=== PATIENT | male | born 1955 | race Caucasian/White ===

== ENCOUNTER 2016-12-30 18:58 | Emergency (ER) | payer OTHER ==
[~2016-12-30] VITALS: Ht 170.2 cm; Wt 79.3 kg
[~2016-12-30 18:58] MED LIST: ALPR0.25 PO; CEPH500 PO; CIPR250T2 PO; DOCU1CAP39 PO; ENOX40P SQ; LORTA10 PO; METHO500 PO; POLY119S PO; [UNRECOGNIZED DRUG - CODE] TOP
[2016-12-30 19:03] VITALS: BP 161/104; PULSE 94; RESP 18; TEMP 98.5; O2SAT 95
[2016-12-30] MEDS ORDERED: CYCL1TAB29 PO (19:37)
[2016-12-30] MEDS ORDERED: IBUP-232 PO (19:37)
--- NOTE | 2016-12-30 19:37 | PD ---
HPI Chief Complaint: Musculoskeletal Complaint Time Seen by Provider: 19:28 Travel History International Travel<30 days: No Contact w/Intl Traveler<30days: No Traveled to known affect area: No History of Present Illness HPI Patient is a 61-year-old male comes in complaining of left-sided neck pain. He says he was removing cabinets yesterday when he felt the pain in his neck. He denies any direct trauma. He denies hitting his head or falling. He says that he tried taking a Lortab without much relief. Pain is worse when he moves his head or his left arm. He denies any numbness or tingling to his hands. PFSH Past Medical History Arthritis: No Asthma: No Autoimmune Disease: No Heart Rhythm Problems: No Cancer: No Cardiovascular Problems: No High Cholesterol: No Chemotherapy: No Chest Pain: No Congestive Heart Failure: No COPD: No Cerebrovascular Accident: No Diabetes: No Diminished Hearing: No Endocrine: No Genitourinary: No Immune Disorder: No Kidney Stones: No Musculoskeletal: Yes (in hip halo and hard cast right lower leg) Neurologic: No Psychiatric: No Reproductive: No Respiratory: No Migraines: No Radiation Therapy: No Renal Failure: No Sickle Cell Disease: No Sleep Apnea: No Thyroid Disease: No Tetanus Vaccination: < 5 Years Influenza Vaccination: No Past Surgical History Abdominal Surgery: Yes (spleenectomy) AICD: No Arteriovenous Shunt: No Cardiac Surgery: No Ear Surgery: No Endocrine Surgery: No Eye Surgery: No Genitourinary Surgery: No Gynecologic Surgery: No Insulin Pump: No Joint Replacement: No Oral Surgery: No Pacemaker: No Thoracic Surgery: No Other Surgery: Yes (BILAT PELVIS , BACK ) Social History Alcohol Use: Yes (DAILY) Tobacco Use: No Substance Use: No Allergies-Medications (Allergen,Severity, Reaction): Coded Allergies: No Known Allergies (Verified , 10/14/13) Reported Meds & Prescriptions Reported Meds & Active Scripts Active Review of Systems General / Constitutional: No: Fever, Chills HENT: Positive: Neck Pain, No: Headaches Cardiovascular: No: Chest Pain or Discomfort Respiratory: No: Shortness of Breath Musculoskeletal: Positive: Pain Skin: No Rash, No Change in Pigmentation Neurologic: No: Weakness, Dizziness, Paresthesia Physical Exam Narrative GENERAL: Awake and alert, in no acute distress. SKIN: Focused skin assessment warm/dry. HEAD: Atraumatic. Normocephalic. EYES: Pupils equal and round. No scleral icterus. Extraocular movements intact. ENT: Mucous membranes pink and moist. NECK: Trachea midline. No JVD. No cervical spine tenderness. Tender to palpation of left trapezius muscle. CARDIOVASCULAR: Regular rate and rhythm. No murmur appreciated. RESPIRATORY: No accessory muscle use. Clear to auscultation. Breath sounds equal bilaterally. MUSCULOSKELETAL: No obvious deformities. No clubbing. No cyanosis. No edema. Full range of motion of the left shoulder. NEUROLOGICAL: Awake and alert. No obvious cranial nerve deficits. Motor grossly within normal limits. Normal speech. Data Data Last Documented VS Vital Signs Date Time Temp Pulse Resp B/P Pulse Ox O2 Delivery O2 Flow Rate FiO2 12/30/16 19:03 98.5 94 18 161/104 95 Orders Cyclobenzaprine (Flexeril) (12/30/16 19:45) Ketorolac Inj (Toradol Inj) (12/30/16 19:45) MDM Medical Decision Making Medical Screen Exam Complete: Yes Emergency Medical Condition: Yes Differential Diagnosis Muscle strain versus shoulder sprain versus neck sprain Narrative Course Patient is a 61-year-old male comes in complaining of back pain. Exam shows tenderness to the left trapezius muscle. Patient given Toradol and Flexeril. Will be discharged with ibuprofen and a prescription for Flexeril. Advised to stretch and use heat and ice. Advised follow-up with his doctor. Advised return to the ED as needed for any worsening symptoms. Diagnosis Primary Impression: Neck strain Qualified Code: S16.1XXA - Neck strain, initial encounter Patient Instructions: Cervical Strain (ED), General Instructions Additional Instructions: Take Ibuprofen and Flexeril for pain. Apply heat and ice, alternating, to the affected area. Be careful as the Flexeril may make you drowsy. Follow up with your doctor. Return to the ED as needed for any worsening symptoms. Scripts Cyclobenzaprine (Flexeril)10 Mg Tab10 Mg PO TID #15 TAB Ref 0 Prov:Jeanette Daveis MD 12/30/16 Ibuprofen 600 Mg Lpw175 Mg PO Q6H PRN (Pain/Inflammation) #20 TAB Ref 0 Prov:Jeanette Davies MD 12/30/16 Disposition: 01 DISCHARGE HOME Condition: Stable Jeanette Davies MD December 30, 2016 19:37
[2016-12-30] MEDS ORDERED: CYCLOBENZAPRINE HCL 10 MG TAB PO ONE (19:45)
[2016-12-30] MEDS ORDERED: KETOROLAC TROMETHAMINE 60 MG/2 ML (IM) VIAL IM ONE (19:45)
== END 2016-12-30 20:22 | disposition home or self-care (01) ==
LOC: PHEFT 18:58
DX: S16.1XXA Strain of muscle, fascia and tendon at neck level, initial encounter (principal); M54.9 Dorsalgia, unspecified; Z87.39 Personal history of other diseases of the musculoskeletal system and connective tissue; X50.0XXA Overexertion from strenuous movement or load, initial encounter
CPT/HCPCS: 96372; 99283; J1885